=== PATIENT | male | born 2000 | race Two or more races ===

== ENCOUNTER 2023-12-08 21:08 | Inpatient (IN) | payer MEDICAID, OTHER ==
[~2023-12-08] VITALS: Ht 182.9 cm; Wt 67.4 kg
[2023-12-08] MEDS ORDERED: ONDANSETRON HCL 4 MG/2 ML VIAL IV ONE ×2 (21:45→22:15)
[2023-12-08 21:56] LABS: Basophils % (auto) 0.6 % (0.0-2.0); Eosinophils # (auto) 0 10 ^3/uL (0-0.8); Hemoglobin 11.4 g/dL (13.5-17.5); Lymphocytes # (auto) 1.8 10 ^3/uL (0.4-5.4); Nucleated Red Blood Cells % 0.1 %
[2023-12-08 21:57] LABS: Basophils # (auto) 0 10 ^3/uL (0-0.2); Hematocrit 38.1 % (41.0-53.0); Lymphocytes % (auto) 19.8 % (10.0-50.0); Mean Corpuscular Hemoglobin 23.9 pg (28.0-32.0); Mean Corpuscular Hgb Conc. 29.8 g/dL (32.0-36.0); Mean Corpuscular Volume 80.2 fL (80.0-100.0); Monocytes # (auto) 0.5 10 ^3/uL (0-1.3); Monocytes % (auto) 5.8 % (0.0-12.0); Neutrophils # (auto) 6.6 10 ^3/uL (1.6-8.6); Neutrophils % (auto) 73.8 % (37.0-80.0); Platelet Count (auto) 454 10^3/uL (140-450); Red Blood Cells 4.75 10^6/uL (4.5-5.90); White Blood Cell 8.9 10^3/uL (4.4-10.8)
[2023-12-08 21:58] LABS: Red Cell Distribution Width 22.3 % (11.8-14.3)
[2023-12-08] MEDS: MORPHINE SULFATE 4 MG/ML SYR/VIAL IV ONE (22:00)
[2023-12-08] MEDS: METOCLOPRAMIDE HCL 5MG/ml INJ 2ml VIAL IV ONE (22:00)
[2023-12-08] MEDS: SODIUM CHLORIDE 0.9% 1,000 ML IV ONE (22:01)
[2023-12-08 22:15] LABS: Urine Bacteria None Seen /hpf (None Seen)
[2023-12-08 22:21] LABS: Anisocytosis Slight; Hypochromia Slight; Platelet Estimate Adequate
[2023-12-08 22:22] LABS: Large Platelets FEW
[2023-12-08 22:24] VITALS: PULSE 107; RESP 22; O2SAT 95
[2023-12-08 22:24] LABS: Alanine Aminotransferase 31 U/L (7-40); Albumin 4.2 g/dL (3.2-4.8); Alkaline Phosphatase 136 U/L (46-116); Anion Gap 19 (5-15); Aspartate Aminotransferase 15 U/L (13-40); BUN/Creatinine Ratio 12.8 (10.0-20.0); Bilirubin, Total 0.5 mg/dL (0.2-1.0); Blood Urea Nitrogen 16 mg/dL (9-23); Calcium 9.6 mg/dL (8.7-10.4); Carbon Dioxide 12 mmol/L (20-30); Chloride 94 mmol/L (98-107); Sodium 125 mmol/L (136-145); Total Protein 8.2 g/dL (5.7-8.2)
[2023-12-08 22:31] LABS: Urine Blood Negative /uL (Negative); Urine Clarity Clear (Clear); Urine Color Light-Yellow (Yellow); Urine Protein, UAD Negative (Negative); Urine Specific Gravity 1.026 (1.001-1.035); Urine Urobilinogen Normal (Negative); Urine WBC 2 /hpf (0 - 3)
[2023-12-08 22:43] LABS: Glucose 583 mg/dL (74-106)
[2023-12-08] MEDS ORDERED: DEXTROSE (50%) 50ML SYRG IV PRN (23:00)
[2023-12-08 23:14] LABS: Magnesium 2.2 mg/dL (1.6-2.6)
[2023-12-08] MEDS: INSULIN DRIP 100 UNIT/100ML 100 ML IV SCH (23:28)
[2023-12-08] MEDS: INSULIN LANTUS (GLARGINE) 1 /0.01ml (100units/ml) SC ONE (23:28)
[2023-12-08] MEDS: SODIUM CHLORIDE 0.9% 1,000 ML IV SCH (23:30)
[2023-12-08] MEDS: ACCU-CHEK COMFORT CURVE STRIP VI SCH (23:30)
[2023-12-09] MEDS: MORPHINE SULFATE 4 MG/ML SYR/VIAL IV ONE (02:09)
[2023-12-09] MEDS ORDERED: NITROGLYCERIN 0.4 MG SL TAB SL PRN (02:45)
[2023-12-09] MEDS ORDERED: MORPHINE SULFATE INJ 2 MG/ml SYRG IV PRN (02:45)
[2023-12-09] MEDS: SODIUM CHLORIDE 0.9% 1,000 ML IV SCH ×2 (03:04→05:01)
[2023-12-09 05:03] LABS: Chloride 105 mmol/L (98-107); Potassium 4.5 mmol/L (3.5-5.1)
[2023-12-09 05:04] LABS: Anion Gap 10 (5-15); Calcium 9.5 mg/dL (8.7-10.4); Carbon Dioxide 19 mmol/L (20-30)
[2023-12-09 05:09] LABS: BUN/Creatinine Ratio 15.2 (10.0-20.0); Blood Urea Nitrogen 16 mg/dL (9-23)
[2023-12-09 05:17] LABS: Glucose 235 mg/dL (74-106); Sodium 134 mmol/L (136-145)
[2023-12-09 07:30] VITALS: PULSE 102; RESP 14; O2SAT 97
[2023-12-09] MEDS ORDERED: DEXTROSE (50%) 50ML SYRG IV PRN ×2 (08:00→14:00)
[2023-12-09] MEDS: ACCU-CHEK COMFORT CURVE STRIP VI SCH ×2 (08:24→17:33)
[2023-12-09] MEDS: InsuLIN REG 1unit/0.01ml Soln (100units/ml) SC SCH ×2 (08:34→17:36)
[2023-12-09 09:55] VITALS: BP 139/89; PULSE 99; RESP 18; TEMP 98.7; O2SAT 100
[2023-12-09 10:37] VITALS: PULSE 99; RESP 18; O2SAT 100
[2023-12-09] MEDS ORDERED: TRAZ-228 PO (10:48)
[2023-12-09] MEDS: INSULIN LANTUS (GLARGINE) 1 /0.01ml (100units/ml) SC SCH (11:09)
[2023-12-09 13:00] VITALS: BP 149/99; PULSE 96; RESP 19; TEMP 98.7; O2SAT 100
[2023-12-09] MEDS: oxyCODONE HCL 5MG TAB PO PRN (14:18)
[2023-12-09 14:53] LABS: Anion Gap 5 (5-15); Carbon Dioxide 25 mmol/L (20-30); Chloride 103 mmol/L (98-107); Potassium 3.9 mmol/L (3.5-5.1); Sodium 133 mmol/L (136-145)
[2023-12-09 14:54] LABS: Calcium 9.2 mg/dL (8.7-10.4)
[2023-12-09 14:59] LABS: BUN/Creatinine Ratio 14.1 (10.0-20.0); Blood Urea Nitrogen 14 mg/dL (9-23); Glucose 336 mg/dL (74-106)
[2023-12-09 17:00] VITALS: BP 129/71; PULSE 94; RESP 19; TEMP 99.2; O2SAT 96
[2023-12-09 20:00] VITALS: PULSE 95; RESP 18
[2023-12-09] MEDS: traZODone HCL 50 MG TAB PO SCH (21:20)
[2023-12-09] MEDS: ceFAZolin 1GM/50ML 50 ML IV SCH (21:20)
[2023-12-10] VITALS (7 sets, daily range): BP systolic 104–139; BP diastolic 81–95; PULSE 82–103; RESP 16–20; TEMP 97.7–98.3; O2SAT 96–100
[2023-12-10] MEDS ORDERED: MORPHINE SULFATE 10 MG/5 ML ORAL SOLN PO PRN (12:00)
[2023-12-10] MEDS: oxyCODONE HCL 5MG TAB PO PRN (15:05)
[2023-12-10] MEDS: INSULIN LANTUS (GLARGINE) 1 /0.01ml (100units/ml) SC SCH (21:46)
[2023-12-11 05:00] VITALS: BP 146/91; PULSE 89; RESP 20; TEMP 98.6; O2SAT 98
[2023-12-11 08:00] VITALS: RESP 18
[2023-12-11 09:00] VITALS: BP 140/87; PULSE 104; RESP 18; TEMP 98.7; O2SAT 100
[2023-12-11] MEDS ORDERED: IBUPROFEN 600 MG TAB PO PRN (10:15)
[2023-12-11 11:21] LABS: Basophils # (auto) 0 10 ^3/uL (0-0.2); Basophils % (auto) 0.6 % (0.0-2.0); Eosinophils # (auto) 0 10 ^3/uL (0-0.8); Eosinophils % (auto) 0.9 % (0.0-7.0); Hematocrit 39.4 % (41.0-53.0); Hemoglobin 12.6 g/dL (13.5-17.5); Lymphocytes # (auto) 1.8 10 ^3/uL (0.4-5.4); Lymphocytes % (auto) 36.4 % (10.0-50.0); Mean Corpuscular Hemoglobin 24.8 pg (28.0-32.0); Mean Corpuscular Volume 77.4 fL (80.0-100.0); Monocytes # (auto) 0.5 10 ^3/uL (0-1.3); Monocytes % (auto) 10.4 % (0.0-12.0); Neutrophils # (auto) 2.6 10 ^3/uL (1.6-8.6); Neutrophils % (auto) 51.7 % (37.0-80.0); Nucleated Red Blood Cells % 0.2 %; Platelet Count (auto) 427 10^3/uL (140-450); Red Blood Cells 5.08 10^6/uL (4.5-5.90); Red Cell Distribution Width 21.9 % (11.8-14.3)
[2023-12-11 11:40] LABS: Alanine Aminotransferase 21 U/L (7-40); Alkaline Phosphatase 111 U/L (46-116); Calcium 9.5 mg/dL (8.7-10.4); Carbon Dioxide 26 mmol/L (20-30); Chloride 100 mmol/L (98-107)
[2023-12-11 11:41] LABS: Albumin 4.1 g/dL (3.2-4.8); Anion Gap 6 (5-15); Aspartate Aminotransferase 13 U/L (13-40); BUN/Creatinine Ratio 10.5 (10.0-20.0); Bilirubin, Total 0.4 mg/dL (0.2-1.0); Blood Urea Nitrogen 8 mg/dL (9-23); Glucose 270 mg/dL (74-106); Magnesium 1.9 mg/dL (1.6-2.6); Potassium 3.8 mmol/L (3.5-5.1); Sodium 132 mmol/L (136-145); Total Protein 8.1 g/dL (5.7-8.2)
[2023-12-11 12:41] LABS: Anisocytosis Slight; Hypochromia Slight; Ovalocytes FEW; Platelet Estimate Adequate
[2023-12-11 13:00] VITALS: BP 144/95; PULSE 96; RESP 14; TEMP 97.6; O2SAT 99
== END 2023-12-11 15:45 | disposition left against medical advice (07) | DRG 420 ==
LOC: EDBD 21:08 → ER 21:08 → OVERFLOW 12-09 02:39 → TELE-WESTW 12-09 09:49 → WEST WING 12-11 02:15
PROVIDERS: ADMIT Nurse Practitioner; ATTEND Internal Medicine Geriatric Medicine
DX: E10.10 Type 1 diabetes mellitus with ketoacidosis without coma (principal); N17.0 Acute kidney failure with tubular necrosis; L03.116 Cellulitis of left lower limb; Z53.29 Procedure and treatment not carried out because of patient's decision for other reasons; E87.1 Hypo-osmolality and hyponatremia; E86.0 Dehydration; E87.5 Hyperkalemia; G89.29 Other chronic pain; Z88.6 Allergy status to analgesic agent; Z79.4 Long term (current) use of insulin; Z79.899 Other long term (current) drug therapy
CPT/HCPCS: 36415; 36600; 73590; 80048; 80053; 81001; 82010; 82805; 82962; 83735; 83930; 84100; 85025; 93005; 97116; 97162; 97530; 99291; G0378; J1815; J2405

== ENCOUNTER 2023-12-24 15:17 | Inpatient (IN) | payer MEDICAID ==
[~2023-12-24] VITALS: Ht 188 cm; Wt 70.8 kg
[~2023-12-24 15:17] MED LIST: TRAZ-228 PO
[2023-12-24] MEDS ORDERED: DEXTROSE (50%) 50ML SYRG IV PRN (15:30)
[2023-12-24] MEDS: SODIUM CHLORIDE 0.9% 1,000 ML IV SCH ×3 (15:30→21:36)
[2023-12-24 15:40] VITALS: PULSE 105; RESP 20; O2SAT 98
[2023-12-24] MEDS: ACCU-CHEK COMFORT CURVE STRIP VI SCH (15:40)
[2023-12-24 15:46] LABS: Base Excess -9.6 mmol/L (-2.0-3.0)
[2023-12-24] MEDS: INSULIN LANTUS (GLARGINE) 1 /0.01ml (100units/ml) SC ONE (16:21)
[2023-12-24 16:30] LABS: Basophils # (auto) 0.1 10 ^3/uL (0-0.2); Eosinophils # (auto) 0.2 10 ^3/uL (0-0.8); Eosinophils % (auto) 2.6 % (0.0-7.0); Monocytes # (auto) 0.7 10 ^3/uL (0-1.3)
[2023-12-24 16:32] LABS: Basophils % (auto) 0.8 % (0.0-2.0); Chloride 94 mmol/L (98-107); Hemoglobin 12.4 g/dL (13.5-17.5); Lymphocytes # (auto) 2.2 10 ^3/uL (0.4-5.4); Lymphocytes % (auto) 24.8 % (10.0-50.0); Mean Corpuscular Hemoglobin 24.5 pg (28.0-32.0); Mean Corpuscular Hgb Conc. 31.1 g/dL (32.0-36.0); Mean Corpuscular Volume 78.9 fL (80.0-100.0); Neutrophils # (auto) 5.6 10 ^3/uL (1.6-8.6); Neutrophils % (auto) 63.8 % (37.0-80.0); Nucleated Red Blood Cells % 0.1 %; Platelet Count (auto) 270 10^3/uL (140-450); Potassium 4.8 mmol/L (3.5-5.1); Red Blood Cells 5.07 10^6/uL (4.5-5.90); Sodium 127 mmol/L (136-145); White Blood Cell 8.7 10^3/uL (4.4-10.8)
[2023-12-24 16:33] LABS: Anion Gap 18 (5-15); Calcium 9.7 mg/dL (8.7-10.4); Carbon Dioxide 15 mmol/L (20-31); Red Cell Distribution Width 20.3 % (11.8-14.3)
[2023-12-24 16:38] LABS: BUN/Creatinine Ratio 12.4 (10.0-20.0); Blood Urea Nitrogen 14 mg/dL (9-23)
[2023-12-24 16:39] LABS: Magnesium 2.1 mg/dL (1.6-2.6)
[2023-12-24 16:41] LABS: Phosphorus 4.1 mg/dL (2.4-5.1)
[2023-12-24 16:49] LABS: Glucose 627 mg/dL (74-106)
[2023-12-24] MEDS: INSULIN DRIP 100 UNIT/100ML 100 ML IV SCH (17:00)
[2023-12-24] MEDS ORDERED: NITROGLYCERIN 0.4 MG SL TAB SL PRN (17:45)
[2023-12-24] MEDS: MORPHINE SULFATE INJ 2 MG/ml SYRG IV ONE (17:55)
[2023-12-24 19:33] VITALS: PULSE 102; RESP 15; O2SAT 98
[2023-12-24 21:56] LABS: Chloride 105 mmol/L (98-107); Potassium 3.9 mmol/L (3.5-5.1)
[2023-12-24 21:57] LABS: Anion Gap 9 (5-15); Calcium 9.2 mg/dL (8.7-10.4); Carbon Dioxide 20 mmol/L (20-31)
[2023-12-24] MEDS ORDERED: MORPHINE SULFATE INJ 2 MG/ml SYRG IV PRN (22:00)
[2023-12-24 22:02] LABS: BUN/Creatinine Ratio 9.4 (10.0-20.0); Blood Urea Nitrogen 8 mg/dL (9-23)
[2023-12-24 22:06] LABS: Glucose 176 mg/dL (74-106); Sodium 134 mmol/L (136-145)
[2023-12-24] MEDS: MORPHINE SULFATE INJ 2 MG/ml SYRG IV PRN (22:43)
[2023-12-24] MEDS: ACCU-CHEK COMFORT CURVE STRIP VI ONE (23:13)
[2023-12-24] MEDS: DEXTROSE (50%) 50ML SYRG IV ONE (23:21)
[2023-12-25] MEDS: traZODone HCL 50 MG TAB PO ONE (01:26)
[2023-12-25] MEDS: InsuLIN REG 1unit/0.01ml Soln (100units/ml) SC SCH ×2 (01:47→09:01)
[2023-12-25] MEDS ORDERED: DEXTROSE (50%) 50ML SYRG IV PRN ×2 (02:15→07:45)
[2023-12-25] MEDS: ACCU-CHEK COMFORT CURVE STRIP VI SCH ×2 (03:56→09:01)
[2023-12-25] MEDS: ALPRAZolam 0.5 MG TAB PO PRN (04:46)
[2023-12-25] MEDS: MORPHINE SULFATE INJ 2 MG/ml SYRG IV PRN (05:58)
[2023-12-25 08:00] VITALS: PULSE 103; PULSE 76; RESP 18; O2SAT 98
[2023-12-25 09:00] VITALS: BP 141/68; PULSE 96; RESP 18; TEMP 98; O2SAT 96
[2023-12-25] MEDS: INSULIN LANTUS (GLARGINE) 1 /0.01ml (100units/ml) SC ONE (09:02)
[2023-12-25] MEDS ORDERED: INSULIN LANTUS (GLARGINE) 1 /0.01ml (100units/ml) SC SCH (10:00)
[2023-12-25] MEDS: hydrOXYzine 25 MG TAB or CAP PO PRN (12:42)
[2023-12-25] MEDS: PANTOPRAZOLE 40 MG TAB PO ONE (12:46)
[2023-12-25 15:23] LABS: Basophils # (auto) 0.1 10 ^3/uL (0-0.2); Basophils % (auto) 1.1 % (0.0-2.0); Eosinophils # (auto) 0.2 10 ^3/uL (0-0.8); Lymphocytes # (auto) 1.9 10 ^3/uL (0.4-5.4); Mean Corpuscular Hgb Conc. 31.8 g/dL (32.0-36.0); White Blood Cell 5.2 10^3/uL (4.4-10.8)
[2023-12-25 15:25] LABS: Eosinophils % (auto) 4.4 % (0.0-7.0); Hematocrit 39.2 % (41.0-53.0); Hemoglobin 12.5 g/dL (13.5-17.5); Lymphocytes % (auto) 37.5 % (10.0-50.0); Mean Corpuscular Hemoglobin 24.4 pg (28.0-32.0); Mean Corpuscular Volume 76.9 fL (80.0-100.0); Monocytes # (auto) 0.5 10 ^3/uL (0-1.3); Monocytes % (auto) 9.7 % (0.0-12.0); Neutrophils # (auto) 2.5 10 ^3/uL (1.6-8.6); Neutrophils % (auto) 47.3 % (37.0-80.0); Nucleated Red Blood Cells % 0.1 %; Platelet Count (auto) 260 10^3/uL (140-450); Red Cell Distribution Width 20.4 % (11.8-14.3)
[2023-12-25 15:37] LABS: Alanine Aminotransferase 13 U/L (7-40); Albumin 3.9 g/dL (3.2-4.8); Alkaline Phosphatase 120 U/L (46-116); Anion Gap 8 (5-15); Aspartate Aminotransferase 11 U/L (13-40); BUN/Creatinine Ratio 8.3 (10.0-20.0); Blood Alcohol < 3.0 mg/dL (<10); Blood Urea Nitrogen 9 mg/dL (9-23); Calcium 9.5 mg/dL (8.7-10.4); Carbon Dioxide 26 mmol/L (20-31); Chloride 99 mmol/L (98-107); Potassium 4.2 mmol/L (3.5-5.1); Sodium 133 mmol/L (136-145)
[2023-12-25 15:38] LABS: Bilirubin, Total 0.2 mg/dL (0.2-1.0); Total Protein 7.4 g/dL (5.7-8.2)
[2023-12-25 15:47] LABS: Glucose 443 mg/dL (74-106)
[2023-12-25 17:00] VITALS: BP 153/104; PULSE 91; RESP 14; TEMP 97.8; O2SAT 98
[2023-12-25] MEDS: GABAPENTIN 300 MG CAP PO ONE (18:43)
[2023-12-25 20:00] VITALS: PULSE 106; PULSE 108; RESP 18; O2SAT 99
[2023-12-25 21:00] VITALS: BP 149/98; PULSE 108; RESP 18; TEMP 98.3; O2SAT 99
[2023-12-25] MEDS: traZODone HCL 50 MG TAB PO SCH (22:06)
[2023-12-25] MEDS: GABAPENTIN 300 MG CAP PO SCH (22:06)
[2023-12-25] MEDS: INSULIN LANTUS (GLARGINE) 1 /0.01ml (100units/ml) SC SCH (22:15)
[2023-12-26] VITALS (8 sets, daily range): BP systolic 119–149; BP diastolic 83–105; PULSE 64–123; RESP 16–20; TEMP 97.7–98.3; O2SAT 96–100
[2023-12-26] MEDS: PANTOPRAZOLE 40 MG TAB PO SCH (05:47)
[2023-12-26] MEDS: NITROGLYCERIN 0.4 MG SL TAB SL PRN (06:30)
[2023-12-26] MEDS: InsuLIN REG 1unit/0.01ml Soln (100units/ml) SC ONE (06:47)
[2023-12-26] MEDS ORDERED: INSULIN LANTUS (GLARGINE) 1 /0.01ml (100units/ml) SC SCH (07:00)
[2023-12-26] MEDS: LORazepam 2MG/ML-1ML VIAL IV PRN (09:28)
[2023-12-26 12:44] LABS: Urine Bacteria FEW /hpf (None Seen); Urine Blood Negative /uL (Negative); Urine Clarity Clear (Clear); Urine Color Light-Yellow (Yellow); Urine Protein, UAD Negative (Negative); Urine Specific Gravity 1.033 (1.001-1.035); Urine Urobilinogen Normal (Negative); Urine WBC <1 /hpf (0 - 3); Urine pH 6.5 (5.0-9.0)
[2023-12-26 12:57] LABS: Basophils # (auto) 0.1 10 ^3/uL (0-0.2); Eosinophils # (auto) 0.3 10 ^3/uL (0-0.8); Monocytes # (auto) 0.5 10 ^3/uL (0-1.3); Nucleated Red Blood Cells % 0.2 %
[2023-12-26 13:00] LABS: Amphetamine Screen, Urine Neg (NEGATIVE); Barbiturate Scree,Urine Neg (NEGATIVE); Benzodiazephine Screen, Urine Neg (NEGATIVE); Cocaine Screen, Urine Neg (NEGATIVE); Opiate Scree,Urine Neg (NEGATIVE); Phencyclidine Screen, Urine Neg (NEGATIVE)
[2023-12-26 13:01] LABS: Eosinophils % (auto) 4.9 % (0.0-7.0); Hematocrit 45.3 % (41.0-53.0); Hemoglobin 14.2 g/dL (13.5-17.5); Lymphocytes # (auto) 2.2 10 ^3/uL (0.4-5.4); Lymphocytes % (auto) 38.2 % (10.0-50.0); Mean Corpuscular Hemoglobin 24.2 pg (28.0-32.0); Mean Corpuscular Hgb Conc. 31.3 g/dL (32.0-36.0); Mean Corpuscular Volume 77.2 fL (80.0-100.0); Monocytes % (auto) 8.9 % (0.0-12.0); Neutrophils # (auto) 2.7 10 ^3/uL (1.6-8.6); Platelet Count (auto) 266 10^3/uL (140-450); Red Blood Cells 5.86 10^6/uL (4.5-5.90); Red Cell Distribution Width 20.8 % (11.8-14.3); White Blood Cell 5.8 10^3/uL (4.4-10.8)
[2023-12-26 13:01] LABS: Cannabinoid Screen, Urine Neg (NEGATIVE)
[2023-12-26 13:07] LABS: Alanine Aminotransferase 22 U/L (7-40); Albumin 4.9 g/dL (3.2-4.8); Alkaline Phosphatase 140 U/L (46-116); Anion Gap 9 (5-15); Aspartate Aminotransferase 27 U/L (13-40); BUN/Creatinine Ratio 14.3 (10.0-20.0); Blood Urea Nitrogen 13 mg/dL (9-23); Calcium 10.5 mg/dL (8.7-10.4); Carbon Dioxide 27 mmol/L (20-31); Chloride 98 mmol/L (98-107); Magnesium 2.1 mg/dL (1.6-2.6); Potassium 4.6 mmol/L (3.5-5.1); Sodium 134 mmol/L (136-145)
[2023-12-26 13:08] LABS: Bilirubin, Total 0.3 mg/dL (0.2-1.0); Total Protein 8.9 g/dL (5.7-8.2)
[2023-12-26 13:27] LABS: Glucose 318 mg/dL (74-106)
[2023-12-26 15:33] LABS: Chloride 101 mmol/L (98-107); Potassium 3.9 mmol/L (3.5-5.1); Sodium 137 mmol/L (136-145)
[2023-12-26 15:34] LABS: Anion Gap 8 (5-15); Calcium 9.6 mg/dL (8.7-10.4); Carbon Dioxide 28 mmol/L (20-31)
[2023-12-26 15:39] LABS: BUN/Creatinine Ratio 12.4 (10.0-20.0); Blood Urea Nitrogen 11 mg/dL (9-23); Glucose 288 mg/dL (74-106)
[2023-12-26] MEDS ORDERED: DEXTROSE (50%) 50ML SYRG IV PRN (20:45)
[2023-12-26] MEDS: INSULIN LANTUS (GLARGINE) 1 /0.01ml (100units/ml) SC SCH (22:31)
[2023-12-26] MEDS: SERTRALINE HCL 50 MG TAB PO ONE (23:42)
[2023-12-26] MEDS: ACCU-CHEK COMFORT CURVE STRIP VI SCH (23:45)
[2023-12-26] MEDS: InsuLIN REG 1unit/0.01ml Soln (100units/ml) SC SCH (23:45)
[2023-12-27 01:00] VITALS: BP 143/85; PULSE 111; RESP 20; TEMP 97.7; O2SAT 98
[2023-12-27 05:00] VITALS: BP 134/94; PULSE 98; RESP 20; TEMP 97.7; O2SAT 100
[2023-12-27 07:08] LABS: Basophils # (auto) 0.1 10 ^3/uL (0-0.2); Eosinophils # (auto) 0.3 10 ^3/uL (0-0.8); Mean Corpuscular Volume 76.4 fL (80.0-100.0)
[2023-12-27 07:14] LABS: Basophils % (auto) 1.2 % (0.0-2.0); Eosinophils % (auto) 5.2 % (0.0-7.0); Hematocrit 38.7 % (41.0-53.0); Hemoglobin 12.3 g/dL (13.5-17.5); Lymphocytes # (auto) 2.8 10 ^3/uL (0.4-5.4); Mean Corpuscular Hemoglobin 24.2 pg (28.0-32.0); Mean Corpuscular Hgb Conc. 31.7 g/dL (32.0-36.0); Monocytes # (auto) 0.7 10 ^3/uL (0-1.3); Monocytes % (auto) 10.3 % (0.0-12.0); Neutrophils # (auto) 2.7 10 ^3/uL (1.6-8.6); Neutrophils % (auto) 40.3 % (37.0-80.0); Nucleated Red Blood Cells % 0.1 %; Platelet Count (auto) 249 10^3/uL (140-450); Red Blood Cells 5.06 10^6/uL (4.5-5.90); Red Cell Distribution Width 20.7 % (11.8-14.3); White Blood Cell 6.6 10^3/uL (4.4-10.8)
[2023-12-27 07:22] LABS: Anion Gap 7 (5-15); Calcium 9.4 mg/dL (8.7-10.4); Carbon Dioxide 27 mmol/L (20-31); Chloride 104 mmol/L (98-107); Potassium 3.8 mmol/L (3.5-5.1); Sodium 138 mmol/L (136-145)
[2023-12-27 07:28] LABS: BUN/Creatinine Ratio 12.7 (10.0-20.0); Blood Urea Nitrogen 10 mg/dL (9-23); Glucose 167 mg/dL (74-106)
[2023-12-27 08:00] VITALS: PULSE 86; RESP 16; O2SAT 99
[2023-12-27 09:00] VITALS: BP 131/83; PULSE 111; RESP 20; TEMP 98; O2SAT 96
[2023-12-27] MEDS: SERTRALINE HCL 50 MG TAB PO SCH (09:14)
[2023-12-27 13:11] VITALS: BP 142/86; PULSE 95; RESP 16; TEMP 98.6; O2SAT 98
[2023-12-27] MEDS ORDERED: ESCI5TAB PO (15:02)
== END 2023-12-27 13:50 | disposition home or self-care (01) | DRG 420 ==
LOC: EDBD 15:17 → ER 15:17 → TELE-WESTW 17:48 → TELE 17:48 → TELE-WESTW 12-25 06:34
PROVIDERS: ADMIT Internal Medicine; ATTEND Internal Medicine
PROC: 05H933Z Insertion of Infusion Device into Right Brachial Vein, Percutaneous Approach (ICD-10-PCS; principal; 2023-12-24)
PROC: B54MZZA Ultrasonography of Right Upper Extremity Veins, Guidance (ICD-10-PCS; 2023-12-24)
DX: E10.10 Type 1 diabetes mellitus with ketoacidosis without coma (principal); N17.9 Acute kidney failure, unspecified; E10.42 Type 1 diabetes mellitus with diabetic polyneuropathy; E87.1 Hypo-osmolality and hyponatremia; D50.9 Iron deficiency anemia, unspecified; F19.10 Other psychoactive substance abuse, uncomplicated; F41.1 Generalized anxiety disorder; F32.A Depression, unspecified; Z88.6 Allergy status to analgesic agent; Z79.4 Long term (current) use of insulin; Z91.199 Patient's noncompliance with other medical treatment and regimen due to unspecified reason; Z79.899 Other long term (current) drug therapy
CPT/HCPCS: 36415; 36600; 80048; 80053; 80307; 80320; 81001; 82010; 82805; 82962; 83036; 83735; 83930; 84100; 84443; 85025; 99291; G0378; J1815